=== PATIENT | male | born 1955 | race Caucasian/White ===

== ENCOUNTER → 2016-03-27 | Outpatient (CLI) | payer OTHER, MEDICAID ==
[~2016-03-27] MED LIST: ALBUTEROL SULFATE 0.083% NEB 2.5 MG/3 ML AMPUL NEB ONE
--- NOTE | 2016-03-29 13:40 | Pulmonary Function Test ---
Pulmonary Function Test Date of Procedure:: 03/27/16 INDICATION:: Dyspnea Referring Provider: Dr. Gonsalo Martin Throat Cutter: Ailyn Arango [employer], [employer] - Report Spirometry: FVC 2.87 L 76% postbronchodilator therapy 2.90 L 76% FEV1 2.07 L 67% postbronchodilator therapy 1.79 L 58% FEV1/FVC % 72 postbronchodilator therapy 62 predicted 81 Impression: Obstructive ventilatory defect with insignificant response to bronchodilator therapy this does not preclude a clinical trial of bronchodilator therapy
== END ==
LOC: RT 09:02
DX: J44.9 Chronic obstructive pulmonary disease, unspecified (principal)
CPT/HCPCS: 94060

== ENCOUNTER → 2016-05-03 | Outpatient (CLI) | payer MEDICAID | LOC: RAD 16:02 | PROVIDERS: ATTEND Family Medicine | DX: N43.0 Encysted hydrocele (principal); N50.3 Cyst of epididymis | CPT/HCPCS: 76870 ==